=== PATIENT | male | born 1940 | race Asian ===

== ENCOUNTER 2018-11-06 12:25 | Emergency (ER) | payer OTHER ==
[~2018-11-06] VITALS: Ht 170.2 cm; Wt 81.6 kg
[2018-11-06 12:29] VITALS: Ht 170.2 cm; Wt 81.6 kg
[2018-11-06 14:05] VITALS: BP 116/69
== END 2018-11-06 14:05 | disposition home or self-care (01) ==
LOC: ED 12:25
DX: S13.9XXA Sprain of joints and ligaments of unspecified parts of neck, initial encounter (principal); S09.8XXA Other specified injuries of head, initial encounter; E11.9 Type 2 diabetes mellitus without complications; E78.00 Pure hypercholesterolemia, unspecified; F03.90 Unspecified dementia, unspecified severity, without behavioral disturbance, psychotic disturbance, mood disturbance, and anxiety; W22.8XXA Striking against or struck by other objects, initial encounter; Y93.89 Activity, other specified; Y92.89 Other specified places as the place of occurrence of the external cause; Y99.8 Other external cause status